=== PATIENT | female | born 1980 | race Two or more races ===

== ENCOUNTER 2019-04-14 15:04 | Outpatient (CLI) | payer MEDICAID ==
[~2019-04-14 15:04] MED LIST: PNV91TAB3 PO; PROM25TA14 PO
== END 2019-04-14 15:50 | disposition home or self-care (01) ==
LOC: ORTHO 15:04
PROVIDERS: ATTEND Orthopaedic Surgery
DX: S52.122A Displaced fracture of head of left radius, initial encounter for closed fracture (principal); M25.532 Pain in left wrist; X58.XXXA Exposure to other specified factors, initial encounter; Y93.89 Activity, other specified; Y92.89 Other specified places as the place of occurrence of the external cause; Y99.8 Other external cause status
CPT/HCPCS: 29105; 73080; 73110; G0463

== ENCOUNTER 2019-05-25 15:23 | Outpatient (CLI) | payer MEDICAID | END 2019-05-25 16:20 | disposition home or self-care (01) | LOC: ORTHO 15:23 | PROVIDERS: ATTEND Orthopaedic Surgery | DX: S52.122D Displaced fracture of head of left radius, subsequent encounter for closed fracture with routine healing (principal); M25.422 Effusion, left elbow; X58.XXXD Exposure to other specified factors, subsequent encounter | CPT/HCPCS: 73080; G0463 ==

== ENCOUNTER 2024-11-12 20:13 | Emergency (ER) | payer MEDICAID ==
[~2024-11-12] VITALS: Ht 160 cm; Wt 80.8 kg
[2024-11-12] MEDS: dexamethasone sod phosphate 10mg/ml inj PO STA (22:46)
[2024-11-12] MEDS: amoxicillin 250mg capsule PO ONE (22:47)
[2024-11-12] MEDS ORDERED: AMOX500C2 PO (23:18)
[2024-11-12 23:34] VITALS: BP 154/96; PULSE 85; RESP 16; TEMP 98; O2SAT 100
== END 2024-11-12 23:35 | disposition home or self-care (01) ==
LOC: ER 20:13
DX: H66.93 Otitis media, unspecified, bilateral (principal); Z79.2 Long term (current) use of antibiotics; Z79.899 Other long term (current) drug therapy; Z98.890 Other specified postprocedural states
CPT/HCPCS: 99283; J1100